=== PATIENT | male | born 1950 | race Caucasian/White ===

== ENCOUNTER 2017-08-27 12:50 | Emergency (ER) | payer MEDICARE ==
[~2017-08-27] VITALS: Ht 182.9 cm; Wt 108.9 kg
[~2017-08-27 12:50] MED LIST: ACCUNEB SO1.25 MG/1 INH; ACETAMINOPHEN-1 EAC1 PO; AMLODIPINE BESY10 MG PO; ASPIRIN325 PO; AUGMENTIN 875875 MG PO; AZITHROMYCIN 2250 MG PO; CEFTIN 250 MG250 MG PO; COLESTIPOL HCL1 G1 PO; COZAAR 50 MG TA50 M2 PO; FISH OIL 1,2001 EAC4 PO; FLOMAX0.4 MG PO; HYDROCODONE-AP1 EAC6 PO; LEVSIN-SL0.125 MG SL; MICARDIS40 MG PO; NEURONTIN 300300 M1 PO; NORCO 5-325 TA1 EACH PO; NYSTATIN 1100000 U/M SW&SWALLOW; ONDANSETRON HCL4 M2 PO; PREDNISONE 10 M10 MG PO; ZETIA10 MG PO; ZOLOFT100 MG PO
[2017-08-27] MEDS ORDERED: MOBIC15 MG PO (13:11)
[2017-08-27 14:05] LABS: URINE BLOOD NEGATIVE (Negative); URINE CLARITY CLEAR; URINE COLOR YELLOW; URINE GLUCOSE-RANDOM NEGATIVE (Negative); URINE KETONES TRACE (Negative); URINE LEUKOCYTES-REFLEX NEGATIVE (Negative); URINE NITRITE-REFLEX NEGATIVE (Negative); URINE PROTEIN TRACE (Negative); URINE SPECIFIC GRAVITY >= 1.030 (1.005-1.030); URINE UROBILINOGEN 0.2 E.U./dl (0.2-1.0)
[2017-08-27 14:07] LABS: URINE BILIRUBIN 1+ (Negative)
[2017-08-27 14:08] LABS: ICTOTEST (BILI CONFIRMATORY) Positive (Negative)
[2017-08-27 14:37] VITALS: BP 148/81
[2017-10-02] MEDS ORDERED: TOPROL XL25 MG PO (13:06)
== END 2017-08-27 14:38 | disposition home or self-care (01) ==
LOC: M.ERS 12:50
PROVIDERS: Physician Assistant
DX: S50.11XA Contusion of right forearm, initial encounter (principal); S40.011A Contusion of right shoulder, initial encounter; S20.211A Contusion of right front wall of thorax, initial encounter; I10 Essential (primary) hypertension; M79.7 Fibromyalgia; E78.00 Pure hypercholesterolemia, unspecified; W01.0XXA Fall on same level from slipping, tripping and stumbling without subsequent striking against object, initial encounter; Y93.89 Activity, other specified; Y92.89 Other specified places as the place of occurrence of the external cause; Y99.8 Other external cause status

== ENCOUNTER → 2017-09-07 | Outpatient (CLI) | payer MEDICARE ==
[~2017-09-07] MED LIST changes: +CARAFATE 1 GM TA1 GM PO; +CEFDINIR300 MG PO; +MOBIC15 MG PO; +PERCOCET PO; +PREVACID30 MG PO; +TOPROL XL25 MG PO
== END ==
LOC: M.MRI 13:03
DX: M75.101 Unspecified rotator cuff tear or rupture of right shoulder, not specified as traumatic (principal)

== ENCOUNTER 2017-10-09 08:47 | Inpatient (IN) | payer MEDICARE ==
[~2017-10-09] VITALS: Ht 182.9 cm; Wt 111.1 kg
[~2017-10-09 08:47] MED LIST changes: -CARAFATE 1 GM TA1 GM PO; -CEFDINIR300 MG PO; -PERCOCET PO; -PREVACID30 MG PO
[2017-10-09 09:31] LABS: HEMATOCRIT 42.9 % (42.0-52.0); HEMOGLOBIN 14.3 gm/dL (14.0-18.0); MCH 31.7 pg (26.0-34.0); MCHC 33.3 g/dL (28.0-37.0); MCV 95.3 fL (80.0-100.0); MPV 7.4 fl. (7.2-11.1); RBC 4.5 mil/uL (4.50-6.00); WBC 4.7 thou/uL (4.0-11.0)
[2017-10-09 09:34] LABS: CALCIUM 9.4 mg/dL (8.5-10.1); CREATININE 0.9 mg/dL (0.6-1.3)
[2017-10-09] MEDS ORDERED: PERCOCET PO (16:39)
[2017-10-09 18:00] VITALS: BP 92/55
--- NOTE | 2017-10-09 19:05 | NUR ---
PT RECEIVED FROM PACU AFTER OUTPATIENT RIGHT ROTATOR CUFF SURGERY THAT LASTED FIVE HOURS. PT HAD DIFFICULTY AROUSING AFTER SURGERY AND EXPERIENCED HYPOTENSIVE EPISODES AND LOW O2 STATS DOWN INTO THE 80'S. PT LIVES ALONE AND HAD NOONE TO HELP HIM TO GO HOME AND AT HOME. CONSEQUENTLY PT WAS DETERMINED HE NEEDED TO BE ADMITTED OVERNIGHT. PT ADMISSION UNABLE TO BE COMPLETED AT THIS TIME. PT CAN NOT STAY AWAKE LONG ENOUGH TO ANSWER QUESTIONS, NOT VERY COHERENT AT THIS TIME. PT ARRIVED FROM PACU AT 1745, REPORT RECEIVED FROM PACU NURSE. CONTINUOUS PULSE OX IN PLACE WITH 3L O2 NC. NO PAIN APPARENT AT THIS TIME, PT SLEEPING QUIETLY WITH BED ALARM ON AND 4 SIDE RAILS UP FOR SAFETY. FRIEND TO BRING IN PT HOME CPAP FOR HS. REPORT TO TELECOMMUNICATION ENGINEER TO MONITOR AND COMPLETE ADMISSION WHEN PT IS MORE ALERT.
[2017-10-09 20:00] VITALS: BP 127/74
[2017-10-10 00:07] VITALS: BP 107/63
[2017-10-10 03:55] VITALS: BP 122/77
--- NOTE | 2017-10-10 06:22 | NUR ---
PT SLEPT AT INTERVALS DURING THE NIGHT, IV SALINE LOCKED, FLUIDS ENCOURAGED, USED URINAL WHILE IN BED, IMMOBILZER ON TO RIGHT ARM, PAIN MEDS GIVEN WHEN REQUESTED, INCREASED PAIN THIS AM, OXY IR THEN GIVEN FOR THE BREAKTHROUGH PAIN, CALL LIGHT IN REACH, PT REPOSITIONED FOR COMFORT, WILL CONTINUE TO MONITOR
[2017-10-10 07:55] VITALS: BP 119/71
--- NOTE | 2017-10-10 10:00 | NUR ---
Pt is A&O. Resides at home alone. Normally active and independent. No DME. No hx of HH or SNF. Pt discharging to home today. Discussed HH, Pt in agreement, faxed dc orders and referral to [facility] per Pt's request. Supportive family that can assist as needed. No further needs. Family to transport.
[2017-10-10 10:02] VITALS: BP 122/77
[2017-10-10 10:08] VITALS: BP 119/71
--- NOTE | 2017-10-10 12:25 | NUR ---
PATIENT DISCHARGED TO HOME WITH HOME HEALTH. DISCHARGE PAPERS REVIEWED AND SIGNED. PRESCRIPTION AND INFORMATION SHEETS GIVEN. IV REMOVED. PATIENT ASSISTED WITH PACKING BELONGINGS. PATIENT DENIES ANY FURTHER NEEDS. PATIENT TAKEN BY WHEELCAHIR TO EXIT. LEFT WITH FRIEND.
--- NOTE | 2017-10-30 14:02 | OP ---
[address] [address] OPERATIVE REPORT Name: MAY WILD Room: [address] IN M.R.#: [id number] Admission: 10/09/17 Attend Phys: Sagar Herrera MD Discharge: 10/10/17 Date of : 48 Report #: [id number] THIS REPORT FOR: //name// CC: Colin Hernandez DICTATED BY: Toribio Amezquita DO DATE OF SERVICE: 10/09/2017 PREOPERATIVE DIAGNOSES: 1. Right shoulder massive rotator cuff tear (supraspinatus, infraspinatus, teres minor, and subscapularis). 2. Type 2 SLAP tear with circumferential degenerative fraying. POSTOPERATIVE DIAGNOSES: 1. Right shoulder massive rotator cuff tear (supraspinatus, infraspinatus, teres minor, and subscapularis). 2. Type 2 SLAP tear with circumferential degenerative fraying. PROCEDURE: 1. Right shoulder arthroscopic surgery with arthroscopic supraspinatus, infraspinatus and teres minor repair. 2. Open subscapularis repair. 3. Biceps tenodesis, debridement of labrum. SURGEON: Rogerio Hernandez DO. PURCHASING AND CLAIMS SUPERVISOR: Toribio Amezquita DO. SECOND STOCK SHIPPER: Christiano River DO ANESTHESIA: General and regional block. ESTIMATED BLOOD LOSS: 30 mL. FINDINGS: Upon diagnostic arthroscopy, the patient was noted to have a full-thickness tear of his subscapularis tendon with retraction back to the level of the glenoid. This was later grasped and found to be reducible back to its footprint on the lesser tuberosity. He also had a full-thickness retracted supraspinatus, infraspinatus and teres minor tear that was retracted to the mid portion of the humeral head. There is degenerative fraying of the free edge of the rotator cuff as well as degenerative type 2 SLAP tear of the biceps labrum complex with circumferential degenerative fraying throughout the perimeter of the labrum. There were degenerative chondral changes on [place] [address] OPERATIVE REPORT Name: MAY WILD Room: [address] [place] [facility]#: [id number] Admission: 10/09/17 Attend Phys: Sagar Herrera MD Discharge: 10/10/17 Date of : 48 Report #: [id number] well SPECIMENS: None. COMPLICATIONS: None. CONDITION OF PATIENT: Stable to PACU. INDICATIONS FOR PROCEDURE: The patient is a 66-year-old male who has had several years of ongoing right shoulder pain. He has had weakness and inability to carry out activities of daily living. He had an MRI demonstrating full-thickness retracted rotator cuff tear of all 4 tendons. He was then referred to me for further operative intervention due to the complexity of his rotator cuff tear. After being seen in the clinic, it was recommended he undergo arthroscopic surgery, if possible open surgical repair of the subscapularis tendon tear. All risks, benefits, complications, and indications were reviewed with the patient as well as the possibility and risk of further surgery in the form of superior capsular reconstruction or reversal of shoulder. The patient gave informed consent and wished to proceed. DESCRIPTION OF PROCEDURE: The patient was brought to the operative suite, placed supine on a well-padded table and then given the benefit of general anesthesia. Once under anesthesia, he was placed in the left lateral decubitus position with his right arm skyward and the arm suspended in 10 pounds of ligamentous balanced suspension. At that time, the right upper extremity was sterilely prepped and draped in standard fashion for this case. Timeout was taken to ensure correct patient, procedure, operative site and Ancef had been given in the form of IV 2 grams prior to incision. At that time, an 11 blade scalpel was used to create a posterior portal incision. Blunt trocar was introduced followed by an arthroscopic camera. Diagnostic arthroscopy was then performed. Upon entering the shoulder, there was degenerative fraying circumferentially of the labrum as well as type 2 SLAP tear of the bicipital labral complex. There was a full-thickness retracted subscapularis tear noted as well as full-thickness retracted tear under the midportion of the humeral head at the supraspinatus infraspinous and teres minor tendons as well as some degenerative chondral change of the humeral head. At this point in time, an anterior portal was established and an arthroscopic shaver was introduced. The degenerative labral tear was debrided with the arthroscopic shaver as well as the degenerative free edge of the rotator cuff tendon. A limited synovectomy was performed. A grasper was then inserted and we were able to reduce the subscapularis back to its footprint on the lesser tuberosity; however, this would be later fixed with the second open procedure. Following this, we then performed a loop intact technique around his degenerative biceps tendon. We then used arthroscopic scissors to cut the biceps tendon and debrided down to the labrum with arthroscopic shaver. A 2.9 mm Arthrex PushLock was then used to perform arthroscopic biceps tenodesis high in the groove. [place] [address] OPERATIVE REPORT Name: MAY WILD Room: [address]#: [id number] Admission: 10/09/17 Attend Phys: Sagar Herrera MD Discharge: 10/10/17 Date of : 48 Report #: [id number] complete, an arthroscopic shaver was then used to free up the retracted rotator cuff tear and remove any adhesions and a limited subacromial decompression was performed. We then created a subacromial lateral portal as well as an ASO portal and a 5 o'clock portal. We used the subacromial lateral portal as her main working portal. We then took 3 Arthrex 5.5 mm corkscrews and created 3 medial row anchors after the rotator cuff footprint was prepared and debrided with arthroscopic shaver. Once these were placed, we then passed the FiberTape suture with a scorpion suture passer. Once these were passed through our rotator cuff, we then used three 4.75 mm SwiveLock sutures creating a double row repair. We were able to use the eyelet sutures from the most anterior and the middle corkscrews to compress our medial row with a isidro knot. Once this portion of the case was completed, arthroscopic images were taken of the rotator cuff repair. The shoulder was lavaged. All instruments were removed. At that time, the portals were closed with 3-0 nylon. Dressings were applied. We then transferred the patient to a T-max table and brought him up to the beach chair position. We reprepped and draped the right shoulder in a standard fashion. We then made a skin incision over the anterior aspect of the right shoulder through skin and subcutaneous tissue. The deltopectoral interval was then developed bluntly with care taken to protect the cephalic vein. Once we got down to the anterior aspect of the shoulder, the biceps tendon was visualized. It appeared that the tenodesis had initially failed, so we with FiberWire whipstitched the biceps tendon into the groove. Once this was done, excess degenerative biceps tendon was excised. The shoulder capsule was opened and the subscapularis tendon was grasped with a cuff grasper and a Rossy. We then took a 5.5 mm corkscrew and placed a medial row in the lesser tuberosity. We used a Scorpion suture passer to pass all 4 limbs of this through the subscapularis tendon. We then tied this over a corkscrew anchor. We pulled these into a lateral row 4.75 mm SwiveLock. We then used one more 4.75 mm SwiveLock to approximate the most anterior aspect of her supraspinatus tendon repair that we could now see opened. Once this was done, wound was thoroughly irrigated and 0 Vicryl was used to approximate the deltopectoral interval fascia, 2-0 Vicryl subcutaneously followed by running 3-0 Stratafix and Exofin glue. Portals were dressed with Xeroform, 4 x 4s, and Tegaderm over the anterior incision. The patient was placed in a slingshot immobilizer and brought to the PACU in stable condition. <ELECTRONICALLY SIGNED> By: Rogerio Hernandez DO 10/30/17 1402 1633 1849Rogerio Hernandez DO /nt
== END 2017-10-10 12:25 | disposition home health service (06) | DRG 501 ==
LOC: M.SUR 08:47 → M.TBA 17:14 → M.ORTHSURG 17:56
PROVIDERS: Orthopaedic Surgery; ADMIT Internal Medicine
PROC: 0LQ14ZZ Repair Right Shoulder Tendon, Percutaneous Endoscopic Approach (ICD-10-PCS; principal; 2017-10-09)
PROC: 0LS34ZZ Reposition Right Upper Arm Tendon, Percutaneous Endoscopic Approach (ICD-10-PCS; principal; 2017-10-09)
DX: M75.101 Unspecified rotator cuff tear or rupture of right shoulder, not specified as traumatic (principal); J98.11 Atelectasis; I25.10 Atherosclerotic heart disease of native coronary artery without angina pectoris; I10 Essential (primary) hypertension; E78.00 Pure hypercholesterolemia, unspecified; E78.5 Hyperlipidemia, unspecified; Z79.82 Long term (current) use of aspirin; Z79.899 Other long term (current) drug therapy; Z80.0 Family history of malignant neoplasm of digestive organs; Z95.2 Presence of prosthetic heart valve

== ENCOUNTER 2018-02-15 09:10 | Emergency (ER) | payer MEDICARE ==
[~2018-02-15] VITALS: Ht 182.9 cm; Wt 107.2 kg
[~2018-02-15 09:10] MED LIST changes: +PERCOCET PO
[2018-02-15 10:02] LABS: ABSOLUTE BASOPHILS 0.1 thou/uL (0.0-0.2); ABSOLUTE EOSINOPHILS 0.2 thou/uL (0.0-0.7); ABSOLUTE LYMPHOCYTES 1.4 thou/uL (0.8-5.3); ABSOLUTE MONOCYTES 0.7 thou/uL (0.0-1.2); ABSOLUTE NEUTROPHILS 3.5 thou/uL (1.6-8.1); BASOPHILS 1.8 %; EOSINOPHILS 4.1 %; HEMATOCRIT 44.8 % (42.0-52.0); HEMOGLOBIN 15.1 gm/dL (14.0-18.0); LYMPHOCYTES 23.3 %; MCH 30.9 pg (26.0-34.0); MCHC 33.7 g/dL (28.0-37.0); MCV 91.6 fL (80.0-100.0); MONOCYTES 11.3 %; MPV 7.3 fl. (7.2-11.1); NUCLEATED RBCS 0 /100WBC; PLATELET COUNT* 228 thou/uL (150-400); POLYS 59.5 %; RBC 4.89 mil/uL (4.50-6.00); RDW-CV 13.9 % (10.5-14.5); WBC 5.9 thou/uL (4.0-11.0)
[2018-02-15 10:10] LABS: ANION GAP 6 mmol/L (7-16); BUN 19 mg/dL (7-18); CALCIUM 8.9 mg/dL (8.5-10.1); CHLORIDE 102 mmol/L (98-107); CO2 28 mmol/L (21-32); CREATININE 0.9 mg/dL (0.6-1.3); GLUCOSE 121 mg/dL (70-99); POTASSIUM 3.8 mmol/L (3.5-5.1); SODIUM 136 mmol/L (136-145)
[2018-02-15 10:16] LABS: ALKALINE PHOSPHATASE 78 U/L (46-116); LIPASE 219 U/L (73-393); MAGNESIUM 1.8 mg/dL (1.8-2.4); SGOT 22 U/L (15-37); SGPT 38 U/L (30-65); TOTAL BILIRUBIN 0.4 mg/dL (<0.1-1.0); TOTAL PROTEIN 7.4 g/dL (6.4-8.2); TROPONIN-I LEVEL <0.06 ng/mL (<0.06)
[2018-02-15 10:27] LABS: BE 0.1 mmol/L (-2 to +3); HCO3 25.2 mmol/L (22.0-26.0); PCO2 42.4 mmHg (35.0-45.0); pH 7.392 (7.340-7.450)
[2018-02-15 10:31] LABS: PO2 30.7 mmHg (75.0-100.0)
[2018-02-15 11:13] LABS: URINE BILIRUBIN NEGATIVE (Negative); URINE BLOOD TRACE (Negative); URINE CLARITY CLEAR; URINE COLOR YELLOW; URINE GLUCOSE-RANDOM NEGATIVE (Negative); URINE KETONES NEGATIVE (Negative); URINE LEUKOCYTES-REFLEX NEGATIVE (Negative); URINE NITRITE-REFLEX NEGATIVE (Negative); URINE PROTEIN NEGATIVE (Negative); URINE UROBILINOGEN 0.2 E.U./dl (0.2-1.0)
[2018-02-15] MEDS ORDERED: CEFDINIR300 MG PO (12:53)
[2018-02-15] MEDS ORDERED: PREVACID30 MG PO (12:53)
[2018-02-15] MEDS ORDERED: CARAFATE 1 GM TA1 GM PO (12:53)
[2018-02-15 13:13] VITALS: BP 131/76
--- NOTE | 2018-02-16 12:53 | EKG ---
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
== END 2018-02-15 13:14 | disposition home or self-care (01) ==
LOC: M.ERS 09:10
PROVIDERS: Personal Emergency Response Attendant
DX: K29.70 Gastritis, unspecified, without bleeding (principal); I10 Essential (primary) hypertension; E78.00 Pure hypercholesterolemia, unspecified; M79.7 Fibromyalgia

== ENCOUNTER 2018-08-08 18:36 | Inpatient (IN) | payer MEDICARE ==
[~2018-08-08] VITALS: Ht 182.9 cm; Wt 108.9 kg
[~2018-08-08 18:36] MED LIST changes: +CARAFATE 1 GM TA1 GM PO; +CEFDINIR300 MG PO; +PREVACID30 MG PO
[2018-08-08 18:37] VITALS: BP 140/83
[2018-08-08 19:50] LABS: ABSOLUTE BASOPHILS 0.1 thou/uL (0.0-0.2); ABSOLUTE EOSINOPHILS 0.3 thou/uL (0.0-0.7); ABSOLUTE LYMPHOCYTES 1.3 thou/uL (0.8-5.3); ABSOLUTE MONOCYTES 1.1 thou/uL (0.0-1.2); ABSOLUTE NEUTROPHILS 6.5 thou/uL (1.6-8.1); BASOPHILS 0.6 %; EOSINOPHILS 3.2 %; HEMATOCRIT 39.8 % (42.0-52.0); HEMOGLOBIN 12.9 gm/dL (14.0-18.0); LYMPHOCYTES 13.9 %; MCH 28.2 pg (26.0-34.0); MCHC 32.4 g/dL (28.0-37.0); MONOCYTES 11.4 %; MPV 7.2 fl. (7.2-11.1); NUCLEATED RBCS 0 /100WBC; PLATELET COUNT* 241 thou/uL (150-400); POLYS 70.9 %; RBC 4.57 mil/uL (4.50-6.00); RDW-CV 15.1 % (10.5-14.5); WBC 9.2 thou/uL (4.0-11.0)
[2018-08-08 20:03] LABS: APTT 26.1 Seconds (25.0-31.3)
[2018-08-08 20:06] LABS: ALBUMIN 3.5 g/dL (3.4-5.0); CALCIUM 9.1 mg/dL (8.5-10.1); CREATININE 1.1 mg/dL (0.6-1.3); TOTAL BILIRUBIN 0.3 mg/dL (<0.1-1.0); TOTAL PROTEIN 7.2 g/dL (6.4-8.2)
[2018-08-09 02:00] VITALS: BP 120/78
[2018-08-09 07:55] VITALS: BP 134/81
[2018-08-09 16:48] VITALS: BP 135/86
[2018-08-09 20:20] VITALS: BP 132/84
[2018-08-10 00:57] VITALS: BP 126/77
[2018-08-10 03:41] VITALS: BP 133/83
[2018-08-10 07:32] VITALS: BP 154/76
[2018-08-10] MEDS ORDERED: CYMBALTA30 MG PO (12:50)
[2018-08-10] MEDS ORDERED: CEFDINIR300 MG PO (12:50)
[2018-08-10] MEDS ORDERED: TRAMADOL 50 MG50 MG PO (12:51)
[2018-08-10] MEDS ORDERED: AZITHROMYCIN 2250 MG PO (12:51)
[2018-08-10 13:57] VITALS: BP 154/76
[2018-08-10 14:31] VITALS: BP 154/76
== END 2018-08-10 14:28 | disposition home or self-care (01) | DRG 205 ==
LOC: M.ERS 18:36 → M.TBA-ER 21:28 → M.3W 21:28
PROVIDERS: Nurse Practitioner Family; ADMIT Internal Medicine
DX: S22.31XA Fracture of one rib, right side, initial encounter for closed fracture (principal); J18.9 Pneumonia, unspecified organism; J98.11 Atelectasis; G89.29 Other chronic pain; M54.9 Dorsalgia, unspecified; M79.7 Fibromyalgia; W18.30XA Fall on same level, unspecified, initial encounter; I12.9 Hypertensive chronic kidney disease with stage 1 through stage 4 chronic kidney disease, or unspecified chronic kidney disease; N18.2 Chronic kidney disease, stage 2 (mild); I25.10 Atherosclerotic heart disease of native coronary artery without angina pectoris; I34.0 Nonrheumatic mitral (valve) insufficiency; E78.5 Hyperlipidemia, unspecified; Z79.82 Long term (current) use of aspirin; Y93.89 Activity, other specified; Y92.89 Other specified places as the place of occurrence of the external cause; Z95.1 Presence of aortocoronary bypass graft; Y99.8 Other external cause status; Z79.899 Other long term (current) drug therapy

== ENCOUNTER → 2019-01-25 | Outpatient (CLI) | payer MEDICARE ==
[~2019-01-25] MED LIST changes: +CYMBALTA30 MG PO; +TRAMADOL 50 MG50 MG PO
== END ==
LOC: M.LAB 12:30 → M.CT 13:00
PROVIDERS: Registered Nurse
DX: I77.810 Thoracic aortic ectasia (principal)

== ENCOUNTER → 2019-02-22 | Outpatient (CLI) | payer MEDICARE | LOC: M.MRI 02-16 09:01 | DX: M54.16 Radiculopathy, lumbar region (principal); M54.12 Radiculopathy, cervical region; M25.50 Pain in unspecified joint; H93.13 Tinnitus, bilateral; R51 Headache ==

== ENCOUNTER → 2019-02-24 | Outpatient (CLI) | payer MEDICARE | LOC: M.MRI 02-16 08:58 | DX: M47.27 Other spondylosis with radiculopathy, lumbosacral region (principal); M47.812 Spondylosis without myelopathy or radiculopathy, cervical region; R29.898 Other symptoms and signs involving the musculoskeletal system; R20.2 Paresthesia of skin; M25.50 Pain in unspecified joint; R26.89 Other abnormalities of gait and mobility; H93.13 Tinnitus, bilateral ==

== ENCOUNTER → 2020-03-22 | Outpatient (CLI) | payer OTHER | LOC: M.MRI 14:30 | PROVIDERS: ATTEND Orthopaedic Surgery | DX: S43.402A Unspecified sprain of left shoulder joint, initial encounter (principal); M75.122 Complete rotator cuff tear or rupture of left shoulder, not specified as traumatic; M85.612 Other cyst of bone, left shoulder; M19.012 Primary osteoarthritis, left shoulder; M25.412 Effusion, left shoulder ==

== ENCOUNTER 2020-05-08 11:57 | Emergency (ER) | payer MEDICARE ==
[~2020-05-08] VITALS: Ht 182.9 cm; Wt 106.6 kg
[2020-05-08 12:09] LABS: URINE BLOOD 1+ (Negative); URINE CLARITY CLEAR; URINE COLOR YELLOW; URINE GLUCOSE-RANDOM 1+ (Negative); URINE KETONES NEGATIVE (Negative); URINE LEUKOCYTES-REFLEX NEGATIVE (Negative); URINE NITRITE-REFLEX NEGATIVE (Negative); URINE PROTEIN 2+ (Negative); URINE SPECIFIC GRAVITY >= 1.030 (1.005-1.030); URINE UROBILINOGEN 0.2 E.U./dl (0.2-1.0)
[2020-05-08] MEDS ORDERED: ZOLOFT100 MG PO (12:10)
[2020-05-08] MEDS ORDERED: MELOXICAM7.5 MG PO (12:11)
[2020-05-08 12:12] LABS: ICTOTEST (BILI CONFIRMATORY) Negative (Negative); URINE BILIRUBIN 1+ (Negative)
[2020-05-08] MEDS ORDERED: TRAMADOL 50 MG50 MG PO (12:12)
[2020-05-08 12:15] LABS: BACTERIA-REFLEX 1-9 Few /HPF (None Seen); CRYSTALS None Seen /LPF (None Seen); HYALINE CASTS 0-3 Few /LPF (None Seen); MUCUS 4-6 Moderate strn/LPF (None Seen); SQUAMOUS 0-3 Few /LPF (0-3); URINE RBC 3-10 Few /HPF (0-2); URINE WBC-REFLEX 0-5 Rare /HPF (0-5)
[2020-05-08 12:34] LABS: INFLUENZA A ANTIGEN Negative (Negative); INFLUENZA B ANTIGEN Negative (Negative)
[2020-05-08 12:37] LABS: ABSOLUTE BASOPHILS 0.1 thou/uL (0.0-0.2); ABSOLUTE EOSINOPHILS 0.2 thou/uL (0.0-0.7); ABSOLUTE LYMPHOCYTES 1.4 thou/uL (0.8-5.3); ABSOLUTE MONOCYTES 0.6 thou/uL (0.0-1.2); ABSOLUTE NEUTROPHILS 3.7 thou/uL (1.6-8.1); BASOPHILS 1.4 %; EOSINOPHILS 4.1 %; HEMATOCRIT 43.9 % (42.0-52.0); LYMPHOCYTES 22.7 %; MCH 32.1 pg (26.0-34.0); MCHC 34.2 g/dL (28.0-37.0); MONOCYTES 10.3 %; MPV 7.1 fl. (7.2-11.1); NUCLEATED RBCS 0 /100WBC; PLATELET COUNT* 221 thou/uL (150-400); POLYS 61.5 %; RBC 4.68 mil/uL (4.50-6.00); WBC 6.1 thou/uL (4.0-11.0)
[2020-05-08 12:47] LABS: CALCIUM 8.9 mg/dL (8.5-10.1); POTASSIUM 3.9 mmol/L (3.5-5.1)
[2020-05-08 12:51] LABS: ALBUMIN 3.6 g/dL (3.4-5.0); MAGNESIUM 1.8 mg/dL (1.8-2.4); TOTAL BILIRUBIN 0.5 mg/dL (<0.1-1.0); TOTAL PROTEIN 7.1 g/dL (6.4-8.2)
[2020-05-08 14:53] VITALS: BP 150/87
--- NOTE | 2020-05-08 15:44 | EKG ---
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 Remigio Kim MD, [facility] /EPI
== END 2020-05-08 14:53 | disposition home or self-care (01) ==
LOC: M.CL 11:57 → M.ERS 11:57
PROVIDERS: Nurse Practitioner Family
DX: R73.9 Hyperglycemia, unspecified (principal); K57.90 Diverticulosis of intestine, part unspecified, without perforation or abscess without bleeding; N40.0 Benign prostatic hyperplasia without lower urinary tract symptoms; K76.0 Fatty (change of) liver, not elsewhere classified; I10 Essential (primary) hypertension; E78.5 Hyperlipidemia, unspecified; M79.7 Fibromyalgia; Z20.828 Contact with and (suspected) exposure to other viral communicable diseases; Z98.61 Coronary angioplasty status; Z98.890 Other specified postprocedural states; Z79.899 Other long term (current) drug therapy

== ENCOUNTER → 2020-05-09 | Outpatient (CLI) | payer MEDICARE ==
[~2020-05-09] MED LIST changes: +MELOXICAM7.5 MG PO
--- NOTE | 2020-05-09 13:59 | 2DMMODE ---
[place] [address] 2 D/M-MODE ECHOCARDIOGRAM Name: MAY WILD Room: [facility]#: [id number] Admission: 05/09/20 Attend Phys: Toni Cook MD Discharge: Date of : 48 Date of Service: 05/09/20 1359 Report #: [id number] THIS REPORT FOR: cc: Colin Martines Bradley L. DO Holkins,Carlos Winters MD [facility] ~ APPROVED REPORT Study performed: 05/09/2020 10:42:15 EXAM: Comprehensive 2D, Doppler, and color-flow Echocardiogram Patient Location: Out-Patient BSA: 2.28 HR: 55 bpm BP: 152/80 mmHg Other Information Study Quality: Good Indications Mitral Valve Disease 2D Dimensions IVSd: 11.66 (7-11mm) LVOT Diam: 20.68 (18-24mm) LVDd: 50.19 mm PWd: 10.99 (7-11mm) Ascending Ao: 34.99 (22-36mm) LVDs: 39.60 (25-40mm) Aortic Root: 32.12 mm Volumes Left Atrial Volume (Systole) LA ESV Index: 21.70 mL/m2 Aortic Valve AoV Peak Humberto.: 1.12 m/s AO Peak Gr.: 5.00 mmHg LVOT Max P.27 mmHg AO Mean Gr.: 2.27 mmHg LVOT Mean P.72 mmHg LVOT Max V: 1.03 m/s AO V2 VTI: 19.36 cm LVOT Mean V: 0.59 m/s ALANA (VTI): 3.19 cm2 LVOT V1 VTI: 18.37 cm Mitral Valve E/A Ratio: 0.74 [place] [address] 2 D/M-MODE ECHOCARDIOGRAM Name: MAY WILD Room: [facility]#: [id number] Admission: 05/09/20 Attend Phys: Toni Cook MD Discharge: Date of : 48 Date of Service: 05/09/20 1359 Report #: [id number] MV Decel. Time: 279.71 ms MV E Max Humberto.: 0.76 m/s MV PHT: 81.12 ms MVA (PHT): 2.71 cm2 TDI E/Lateral E': 8.44 E/Medial E': 10.86 Medial E' Humberto.: 0.07 m/s Lateral E' Humberto.: 0.09 m/s Pulmonary Valve PV Peak Humberto.: 0.96 m/s PV Peak Gr.: 3.67 mmHg Left Ventricle The left ventricle is normal size. There is normal LV segmental wall motion. There is normal left ventricular wall thickness. Left ventricular systolic function is normal. The left ventricular ejection fraction is within the normal range. LVEF is 50-55%. Grade I - abnormal relaxation pattern. Right Ventricle The right ventricle is normal size. The right ventricular systolic function is normal. Atria The left atrium size is normal. The right atrium size is normal. Aortic Valve The aortic valve is normal in structure. No aortic regurgitation is present. There is no aortic valvular stenosis. Mitral Valve Mild mitral annular calcification. Annuloplasty ring is noted in the mitral position. There is no mitral valve regurgitation noted. No evidence of mitral valve stenosis. Tricuspid Valve The tricuspid valve is normal in structure. There is no tricuspid valve regurgitation noted. Pulmonic Valve The pulmonary valve is normal in structure. There is no pulmonic valvular regurgitation[place] [address] 2 D/M-MODE ECHOCARDIOGRAM Name: MAY WILD Room: [facility]#: [id number] Admission: 05/09/20 Attend Phys: Toni Cook MD Discharge: Date of : 48 Date of Service: 05/09/20 1359 Report #: [id number] The aortic root is normal in size. IVC is normal in size and collapses >50% with inspiration. Pericardium There is no pericardial effusion. <Conclusion> The left ventricle is normal size. There is normal left ventricular wall thickness. Left ventricular systolic function is normal. The left ventricular ejection fraction is within the normal range. LVEF is 50-55%. Grade I - abnormal relaxation pattern. The right ventricle is normal size. The left atrium size is normal. The aortic valve is normal in structure. Mild mitral annular calcification. There is no mitral valve regurgitation noted. No evidence of mitral valve stenosis. The tricuspid valve is normal in structure. IVC is normal in size and collapses >50% with inspiration. There is no pericardial effusion. There is normal LV segmental wall motion. Annuloplasty ring is noted in the mitral position. <ELECTRONICALLY SIGNED> By: Carlos Lopez MD, FACC 05/09/20 1359 1359 1359 Carlos Lopez MD, FACC /INF
== END ==
LOC: M.CRD 10:49
PROVIDERS: ATTEND Internal Medicine Cardiovascular Disease
DX: I25.10 Atherosclerotic heart disease of native coronary artery without angina pectoris (principal)

== ENCOUNTER → 2020-05-18 | Outpatient (CLI) | payer MEDICARE | LOC: M.LAB 15:36 | PROVIDERS: ATTEND Orthopaedic Surgery | DX: Z01.812 Encounter for preprocedural laboratory examination (principal); Z20.828 Contact with and (suspected) exposure to other viral communicable diseases ==

== ENCOUNTER → 2020-07-16 | Outpatient (CLI) | payer MEDICARE | LOC: M.RAD 07-13 15:15 | PROVIDERS: ATTEND Orthopaedic Surgery | DX: M17.12 Unilateral primary osteoarthritis, left knee (principal); M25.562 Pain in left knee; M25.572 Pain in left ankle and joints of left foot ==

== ENCOUNTER → 2020-07-23 | Outpatient (CLI) | payer MEDICARE | LOC: M.RAD 14:32 | PROVIDERS: ATTEND Orthopaedic Surgery | DX: M17.11 Unilateral primary osteoarthritis, right knee (principal) ==

== ENCOUNTER → 2020-08-31 | Outpatient (CLI) | payer MEDICARE | LOC: M.LAB 09:39 | PROVIDERS: ATTEND Student in an Organized Health Care Education/Training Program | DX: Z01.812 Encounter for preprocedural laboratory examination (principal); Z20.822 Contact with and (suspected) exposure to COVID-19 ==

== ENCOUNTER → 2020-09-05 | Day surgery (SDC) | payer MEDICARE ==
[~2020-09-05] MED LIST changes: +COLACE100 MG PO; +MILK OF MA400 MG/5 M PO; +NEURONTIN600 MG PO; +PERCOCET 5-3251 EACH PO
[2020-09-05 06:42] LABS: HEMATOCRIT 42.2 % (42.0-52.0); MCH 31.3 pg (26.0-34.0); MCHC 33.2 g/dL (28.0-37.0); MCV 94.2 fL (80.0-100.0); MPV 7.2 fl. (7.2-11.1); RBC 4.48 mil/uL (4.50-6.00); RDW-CV 13.2 % (10.5-14.5); WBC 5.5 thou/uL (4.0-11.0)
[2020-09-05 06:57] LABS: CALCIUM 9.5 mg/dL (8.5-10.1); CREATININE 0.9 mg/dL (0.6-1.3)
[2020-09-05 07:01] LABS: ALBUMIN 3.7 g/dL (3.4-5.0); TOTAL BILIRUBIN 0.5 mg/dL (<0.1-1.0); TOTAL PROTEIN 6.9 g/dL (6.4-8.2)
--- NOTE | 2020-09-10 10:06 | PATH ---
[facility] [address] [place] [address] PATHOLOGY RPT PROCEDURE Name: MAY WILD Room: [facility]#: [id number] Admission: 09/05/20 Date of : 48 Discharge: Report #: [id number] Path Case #: [id number] [facility] Accession Number: [id number] . 01 Material submitted: . gallbladder - GALLBLADDER AND CONTENTS . 01 Clinician provided ICD-10: y . 01 Clinical history: . CHRONIC CHOLECYSTITIS . 02 Diagnosis: Gallbladder and contents: - Chronic cholecystitis and cholelithiasis. (SUKUMAR:pit 09/07/2020) QTP 09/07/2020 164 Local . 02 Electronically signed: . Zane Ledesma MD, Pathologist NPI- [id number] . 01 Gross description: . Fixative: formalin Labeled: gallbladder and contents Specimen received: partially collapsed Dimensions: 8 x 4 x 2.5 cm Serosa: smooth berry green Lymph node: not identified Mucosa: velvety Average wall thickness: 0.3 cm Calculi: Multiple brown-black measuring up to 0.5 cm Abnormalities: None Kitchen Runner body, fundus, and the cystic duct margin in cassette A1.([facility]; 09/06/2020) RODRIGO/RODRIGO 09/07/2020 1644 Local . 02 Pathologist provided ICD-10: K80.10 . 02 CPT . 861112 Specimen Comment: A courtesy copy of this report has been sent to [phone] Specimen Comment: [phone] Specimen Comment: Report sent to / DR COOPER Performed at: [address] [address] PATHOLOGY RPT PROCEDURE Name: MAY WILD Room: [facility]#: [id number] Admission: 09/05/20 Date of : [birth year] Discharge: Report #: [id number] Path Case #: [id number] [address], [place], [place] [id number] MD Mor Griffin MD Phone: [phone] Performed at: [facility] [address] [place], [place] [id number] MD Zane Ledesma MD Phone: [phone]
--- NOTE | 2020-09-12 15:11 | OP ---
[address] [address] OPERATIVE REPORT Name: MAY WILD Room: [facility]#: [id number] Admission: 09/05/20 Attend Phys: Rene Keyes MD Discharge: Date of : 48 Report #: [id number] THIS REPORT FOR: cc: Colin Martines Bradley L. DO Smith, Jared B. MD ~ DATE OF SERVICE: 09/05/2020 PROCEDURE PERFORMED: Laparoscopic cholecystectomy. PREOPERATIVE DIAGNOSIS: Chronic cholecystitis with gallstones. POSTOPERATIVE DIAGNOSIS: Chronic cholecystitis with gallstones. INDICATIONS: The patient is a 69-year-old gentleman with abdominal bloating symptoms that are mostly postprandial. There is crampy pain as well. He was found to have gallstones. He understood the indications, benefits, risks and alternatives to laparoscopic cholecystectomy and wished to proceed. FINDINGS: The omentum was chronically adhesed to the gallbladder fundus, and there was scarring in the hepatocystic triangle. PROCEDURE IN DETAIL: After informed consent was obtained from the patient, he was taken to the operating room and placed in supine position. Preoperative antibiotics were infused and sequential compression devices were applied. General anesthesia was established. The abdomen was prepped and draped in the usual sterile fashion. A 5 mm incision was created at the umbilicus and pneumoperitoneum established with insertion of Veress needle. A 5 mm trocar was placed with the Visiport technique. There were no complications from entry. An epigastric 12 mm trocar was placed through the falciform ligament and two 5 mm trocars were placed in the right mid abdomen. The gallbladder was grasped and retracted anterolaterally to the right. The omentum was dissected off the gallbladder with laparoscopic electrocautery hook. The gallbladder peritoneum was then dissected from the gallbladder neck in a medial to lateral progression with electrocautery hook. A top down dissection was initiated with electrocautery hook for separation of gallbladder from the gallbladder fossa. The contents of the hepatocystic triangle was delicately dissected out using a [place] grasper and electrocautery hook. The critical view of safety was achieved from both the medial and lateral view. The cystic duct was doubly clipped proximally and single clipped distally as was the cystic artery. Each structure was then divided between proximal and distal clips with laparoscopic scissors. The gallbladder was completely removed from the gallbladder fossa and then removed from the abdominal cavity within a specimen retrieval bag from the epigastric trocar site. The right upper quadrant was irrigated. There was good hemostasis. Pneumoperitoneum was evacuated [place] [address] OPERATIVE REPORT Name: MAY WILD Room: [facility]#: [id number] Admission: 09/05/20 Attend Phys: Rene Keyes MD Discharge: Date of : 48 Report #: [id number] anesthetic was infiltrated into the skin. The skin was closed with subcuticular 4-0 Monocryl suture. Dermabond bandages were placed. The patient tolerated the procedure without complications and was taken to recovery area in good condition. COMPLICATIONS: None. ESTIMATED BLOOD LOSS: 5 mL. SPECIMEN: Gallbladder to pathology. DRAINS: None. <ELECTRONICALLY SIGNED> By: Rene Keyes MD 09/12/20 1511 1406 1448Rene Keyes MD /nt
== END | disposition home or self-care (01) ==
LOC: M.SUR 06:04
PROVIDERS: ATTEND Student in an Organized Health Care Education/Training Program
DX: K80.10 Calculus of gallbladder with chronic cholecystitis without obstruction (principal); R10.9 Unspecified abdominal pain; E11.9 Type 2 diabetes mellitus without complications; M79.7 Fibromyalgia; N40.0 Benign prostatic hyperplasia without lower urinary tract symptoms; Z98.890 Other specified postprocedural states; Z79.899 Other long term (current) drug therapy

== ENCOUNTER → 2020-09-28 | Outpatient (CLI) | payer MEDICARE ==
[2020-09-28 10:28] LABS: ABSOLUTE BASOPHILS 0.1 thou/uL (0.0-0.2); ABSOLUTE EOSINOPHILS 0.4 thou/uL (0.0-0.7); ABSOLUTE LYMPHOCYTES 1.4 thou/uL (0.8-5.3); ABSOLUTE MONOCYTES 0.6 thou/uL (0.0-1.2); ABSOLUTE NEUTROPHILS 3.2 thou/uL (1.6-8.1); BASOPHILS 1.5 %; EOSINOPHILS 7.5 %; HEMATOCRIT 44.9 % (42.0-52.0); LYMPHOCYTES 25.3 %; MCH 31.2 pg (26.0-34.0); MCHC 33.3 g/dL (28.0-37.0); MCV 93.7 fL (80.0-100.0); MONOCYTES 10.3 %; MPV 7.2 fl. (7.2-11.1); NUCLEATED RBCS 0 /100WBC; PLATELET COUNT* 235 thou/uL (150-400); POLYS 55.4 %; RBC 4.79 mil/uL (4.50-6.00); RDW-CV 13.3 % (10.5-14.5); WBC 5.7 thou/uL (4.0-11.0)
[2020-09-28 10:45] LABS: ALBUMIN 3.8 g/dL (3.4-5.0); CALCIUM 9.2 mg/dL (8.5-10.1); CREATININE 0.9 mg/dL (0.6-1.3); POTASSIUM 4.3 mmol/L (3.5-5.1); TOTAL BILIRUBIN 0.5 mg/dL (<0.1-1.0); TOTAL PROTEIN 7.1 g/dL (6.4-8.2)
== END ==
LOC: M.LAB 10:00 → M.CT 11:00
PROVIDERS: ATTEND Internal Medicine Gastroenterology
DX: K57.30 Diverticulosis of large intestine without perforation or abscess without bleeding (principal); R14.0 Abdominal distension (gaseous); E11.9 Type 2 diabetes mellitus without complications; N28.89 Other specified disorders of kidney and ureter; I51.7 Cardiomegaly; I25.10 Atherosclerotic heart disease of native coronary artery without angina pectoris

== ENCOUNTER → 2020-10-02 | Outpatient (CLI) | payer MEDICARE | LOC: M.NUC 07:04 | PROVIDERS: ATTEND Internal Medicine Gastroenterology | DX: R14.0 Abdominal distension (gaseous) (principal); R14.1 Gas pain ==

== ENCOUNTER → 2020-10-25 | Outpatient (CLI) | payer MEDICARE | LOC: M.ULTRA 13:56 | PROVIDERS: ATTEND Family Medicine | DX: N28.89 Other specified disorders of kidney and ureter (principal) ==

== ENCOUNTER → 2021-03-01 | Outpatient (CLI) | payer MEDICARE | LOC: M.MRI 02-28 13:21 → M.ULTRA 12:35 → M.MRI 13:30 | PROVIDERS: ATTEND Orthopaedic Surgery | DX: S93.491A Sprain of other ligament of right ankle, initial encounter (principal); M79.89 Other specified soft tissue disorders; I73.9 Peripheral vascular disease, unspecified; M77.31 Calcaneal spur, right foot; X58.XXXA Exposure to other specified factors, initial encounter; Y93.89 Activity, other specified; Y92.89 Other specified places as the place of occurrence of the external cause; Y99.8 Other external cause status; Z78.9 Other specified health status ==

== ENCOUNTER → 2021-05-23 | Outpatient (CLI) | payer MEDICARE ==
[2021-05-23 15:28] LABS: ABSOLUTE BASOPHILS 0.1 thou/uL (0.0-0.2); ABSOLUTE LYMPHOCYTES 1.8 thou/uL (0.8-5.3); ABSOLUTE MONOCYTES 0.9 thou/uL (0.0-1.2); HEMOGLOBIN 14.9 gm/dL (14.0-18.0); MONOCYTES 10.6 %; RDW-CV 13.9 % (10.5-14.5)
[2021-05-23 15:30] LABS: ABSOLUTE EOSINOPHILS 0.4 thou/uL (0.0-0.7); ABSOLUTE NEUTROPHILS 5.5 thou/uL (1.6-8.1); EOSINOPHILS 4.1 %; HEMATOCRIT 43.8 % (42.0-52.0); MCH 31.2 pg (26.0-34.0); MCV 91.9 fL (80.0-100.0); MPV 6.9 fl. (7.2-11.1); NUCLEATED RBCS 0 /100WBC; PLATELET COUNT* 256 thou/uL (150-400); POLYS 63.3 %; RBC 4.77 mil/uL (4.50-6.00); WBC 8.7 thou/uL (4.0-11.0)
[2021-05-23 15:41] LABS: ALBUMIN 3.7 g/dL (3.4-5.0); CALCIUM 9.8 mg/dL (8.5-10.1); CREATININE 1.5 mg/dL (0.6-1.3); POTASSIUM 3.9 mmol/L (3.5-5.1); TOTAL BILIRUBIN 0.3 mg/dL (<0.1-1.0); TOTAL PROTEIN 7.3 g/dL (6.4-8.2)
[2021-05-23 16:34] LABS: ESR (SEDRATE) 2 mm/hr (0-20)
[2021-05-24 07:09] LABS: GLYCOHEMOGLOBIN (HGB A1C) 7.5 % (4.8-5.6)
== END ==
LOC: M.LAB 15:07
PROVIDERS: ATTEND Internal Medicine Gastroenterology
DX: R10.9 Unspecified abdominal pain (principal); R14.0 Abdominal distension (gaseous)

== ENCOUNTER → 2021-05-29 | Outpatient (CLI) | payer MEDICARE | LOC: M.MRI 13:02 | PROVIDERS: ATTEND Anesthesiology Pain Medicine | DX: M47.26 Other spondylosis with radiculopathy, lumbar region (principal); M47.27 Other spondylosis with radiculopathy, lumbosacral region; M48.061 Spinal stenosis, lumbar region without neurogenic claudication; M48.07 Spinal stenosis, lumbosacral region; M46.06 Spinal enthesopathy, lumbar region; M25.78 Osteophyte, vertebrae ==